=== PATIENT | female | born 1960 | race Two or more races ===

== ENCOUNTER 2022-09-30 03:58 | Inpatient (IN) | payer BC ==
[~2022-09-30] VITALS: Ht 154.9 cm; Wt 79.6 kg
[2022-09-30] VITALS (11 sets, daily range): BP systolic 105–130; BP diastolic 55–63; PULSE 68–125; RESP 18–24; TEMP 98.1–99.2; O2SAT 91–99
[2022-09-30] MEDS ORDERED: FERR325T20 PO (04:08)
[2022-09-30] MEDS ORDERED: FURO40TA4 PO (04:08)
[2022-09-30] MEDS ORDERED: MID10T PO (04:08)
[2022-09-30] MEDS ORDERED: LACT10SO3 PO (04:08)
[2022-09-30] MEDS ORDERED: FOLI-119 PO (04:08)
[2022-09-30] MEDS ORDERED: OMEP20TA PO (04:09)
[2022-09-30] MEDS ORDERED: ACETAMINOPHEN 325 MG TAB PO PRN (05:30)
[2022-09-30] MEDS ORDERED: MORPHINE SULFATE INJ 2 MG/ml SYRG IV PRN (05:30)
[2022-09-30] MEDS ORDERED: DOCUSATE SOD 100 MG CAP PO PRN (05:30)
[2022-09-30] MEDS ORDERED: ONDANSETRON HCL 4 MG/2 ML VIAL IV PRN (05:30)
[2022-09-30] MEDS ORDERED: ALBUTEROL SULF 2.5 MG/0.5ML(0.5%) NEB SOLN NEB PRN (05:30)
[2022-09-30] MEDS ORDERED: HYDROcodone-ACET 5/325MG TAB PO PRN (05:30)
[2022-09-30] MEDS ORDERED: NITROGLYCERIN 0.4 MG SL TAB SL PRN (05:30)
[2022-09-30] MEDS: LACTULOSE 20Gm/30ML SOLN PO SCH ×3 (06:00→19:03)
[2022-09-30] MEDS ORDERED: CEFEPIME 1GM/ 50ML 50 ML IV ONE (06:00)
[2022-09-30] MEDS: MIDODRINE HCL 10 MG TAB PO SCH ×3 (06:09→22:07)
[2022-09-30] MEDS: SOD CHL 0.9%/ KCL 20MEQ 1,000 ML IV SCH (06:19)
[2022-09-30 07:42] LABS: Basophils # (auto) 0 10 ^3/uL (0-0.2); Basophils % (auto) 0.4 % (0.0-2.0); Eosinophils # (auto) 0 10 ^3/uL (0-0.8); Eosinophils % (auto) 0.1 % (0.0-7.0); Hematocrit 36.9 % (36.0-46.0); Hemoglobin 11.6 g/dL (12.2-16.2); Lymphocytes # (auto) 0.9 10 ^3/uL (0.4-5.4); Lymphocytes % (auto) 10.3 % (10.0-50.0); Mean Corpuscular Hemoglobin 29.2 pg (28.0-32.0); Mean Corpuscular Hgb Conc. 31.5 g/dL (32.0-36.0); Mean Corpuscular Volume 92.5 fL (80.0-100.0); Monocytes # (auto) 1.3 10 ^3/uL (0-1.3); Monocytes % (auto) 15.5 % (0.0-12.0); Neutrophils # (auto) 6.1 10 ^3/uL (1.6-8.6); Neutrophils % (auto) 73.7 % (37.0-80.0); Nucleated Red Blood Cells % 0.1 %; Red Blood Cells 3.99 10^6/uL (4.0-5.20); Red Cell Distribution Width 17.8 % (11.8-14.3); White Blood Cell 8.3 10^3/uL (4.4-10.8)
[2022-09-30 07:49] LABS: Lactic Acid w/Reflex 5.2 mmol/L (0.4-2.0)
[2022-09-30 08:47] LABS: Potassium 3.1 mmol/L (3.5-5.1)
[2022-09-30 09:06] LABS: Albumin 1.7 g/dL (3.4-5.0); BUN/Creatinine Ratio 10.7 (10.0-20.0); Bilirubin, Total 3.8 mg/dL (0.2-1.0); Calcium 8.3 mg/dL (8.7-10.4); Total Protein 5.5 g/dL (6.4-8.2)
[2022-09-30] MEDS: PANTOPRAZOLE 40 MG TAB PO SCH ×2 (09:21→22:05)
[2022-09-30] MEDS: FOLIC ACID 1 MG TAB PO SCH (09:21)
[2022-09-30] MEDS: FERROUS SULFATE 325mg EC TAB PO SCH ×2 (09:21→19:03)
[2022-09-30] MEDS: POTASSIUM CHL 20 Meq TABLET PO SCH ×2 (11:25→15:07)
[2022-09-30] MEDS: ALBUTEROL SULF 2.5 MG/0.5ML(0.5%) NEB SOLN NEB SCH ×2 (12:01→20:16)
[2022-09-30 13:37] LABS: INR 1.98 (0.9-1.15); Prothrombin Time 19.9 sec (9.3-11.8)
[2022-09-30] MEDS ORDERED: CEFEPIME 1GM/ 50ML 50 ML IV SCH (18:00)
[2022-09-30] MEDS: levoFLOXacin 500MG 100 ML IV SCH (19:03)
[2022-10-01] VITALS (10 sets, daily range): BP systolic 105–114; BP diastolic 39–56; PULSE 100–112; RESP 16–23; TEMP 98–99.1; O2SAT 90–97
[2022-10-01] MEDS: LACTULOSE 20Gm/30ML SOLN PO SCH ×3 (05:22→12:00)
[2022-10-01] MEDS: MIDODRINE HCL 10 MG TAB PO SCH ×2 (05:22→17:22)
[2022-10-01 05:57] LABS: Hematocrit 32.8 % (36.0-46.0); Hemoglobin 10.6 g/dL (12.2-16.2); Mean Corpuscular Hemoglobin 29.5 pg (28.0-32.0); Mean Corpuscular Hgb Conc. 32.4 g/dL (32.0-36.0); Mean Corpuscular Volume 91.1 fL (80.0-100.0); Red Cell Distribution Width 17.5 % (11.8-14.3); White Blood Cell 7.9 10^3/uL (4.4-10.8)
[2022-10-01 06:15] LABS: Band Neutrophils % (manual) 0; Basophils % (manual) 0 (0.0-2.0); Blast Cells 0; Eosinophils % (manual) 0 (0-7); Metamyelocytes % 0; Myelocytes % 0; Promyelocytes % 0; Reactive Lymphocytes 0
[2022-10-01 06:25] LABS: Anion Gap 8.1 (5-15); Carbon Dioxide 20.9 mmol/L (20-30); Chloride 113 mmol/L (98-107); Potassium 3.4 mmol/L (3.5-5.1); Sodium 142 mmol/L (136-145)
[2022-10-01 06:26] LABS: Calcium 8.2 mg/dL (8.7-10.4)
[2022-10-01 06:31] LABS: BUN/Creatinine Ratio 10.8 (10.0-20.0); Blood Urea Nitrogen 7 mg/dL (9-23); Glucose 90 mg/dL (74-106)
[2022-10-01] MEDS: ALBUTEROL SULF 2.5 MG/0.5ML(0.5%) NEB SOLN NEB SCH ×2 (07:00→12:39)
[2022-10-01] MEDS: SOD CHL 0.9%/ KCL 20MEQ 1,000 ML IV SCH (07:12)
[2022-10-01] MEDS ORDERED: POTASSIUM CHL 20 Meq TABLET PO ONE (09:00)
[2022-10-01] MEDS: PANTOPRAZOLE 40 MG TAB PO SCH (09:11)
[2022-10-01] MEDS: FERROUS SULFATE 325mg EC TAB PO SCH (09:12)
[2022-10-01] MEDS: FOLIC ACID 1 MG TAB PO SCH (09:12)
[2022-10-01] MEDS: levoFLOXacin 500MG 100 ML IV SCH (09:12)
[2022-10-01] MEDS ORDERED: LEVO500T91 PO (09:26)
[2022-10-01] MEDS ORDERED: ALBUAER3 IN (09:26)
[2022-10-01] MEDS ORDERED: PHYTONADIONE(VitK) ORAL Susp 5mg/5ml(1mg/ml) PO ONE ×2 (09:30→11:30)
[2022-10-01 12:53] LABS: Lymphocytes % (manual) 16 (10.0-50.0); Monocytes % (manual) 11 (0-12); Platelet Estimate Decreased
== END 2022-10-01 18:37 | disposition home health service (06) | DRG 871 ==
LOC: TELE-EAST 03:58
PROVIDERS: ADMIT Nurse Practitioner; ATTEND Internal Medicine
DX: A41.9 Sepsis, unspecified organism (principal); J18.9 Pneumonia, unspecified organism; R18.8 Other ascites; J96.10 Chronic respiratory failure, unspecified whether with hypoxia or hypercapnia; D68.4 Acquired coagulation factor deficiency; K74.60 Unspecified cirrhosis of liver; K76.82 Hepatic encephalopathy; E78.5 Hyperlipidemia, unspecified; D50.9 Iron deficiency anemia, unspecified; K21.9 Gastro-esophageal reflux disease without esophagitis; Z99.81 Dependence on supplemental oxygen
CPT/HCPCS: 36415; 76705; 80048; 80053; 82140; 83605; 85007; 85025; 85027; 85610; 94640; G0378; J1956

== ENCOUNTER 2022-10-09 20:59 | Inpatient (IN) | payer BC ==
[~2022-10-09] VITALS: Ht 154.9 cm; Wt 80.1 kg
[~2022-10-09 20:59] MED LIST: ALBUAER3 IN; FERR325T20 PO; FOLI-119 PO; LACT10SO3 PO; LEVO500T91 PO; MID10T PO; OMEP20TA PO
[2022-10-09 22:00] VITALS: PULSE 99; RESP 16; O2SAT 96
[2022-10-09 22:19] LABS: Basophils # (auto) 0.1 10 ^3/uL (0-0.2); Basophils % (auto) 0.4 % (0.0-2.0); Eosinophils # (auto) 0 10 ^3/uL (0-0.8); Eosinophils % (auto) 0.2 % (0.0-7.0); Hematocrit 32.7 % (36.0-46.0); Hemoglobin 10.8 g/dL (12.2-16.2); Lymphocytes # (auto) 1.2 10 ^3/uL (0.4-5.4); Lymphocytes % (auto) 7.4 % (10.0-50.0); Mean Corpuscular Hemoglobin 29.3 pg (28.0-32.0); Mean Corpuscular Hgb Conc. 32.9 g/dL (32.0-36.0); Mean Corpuscular Volume 88.9 fL (80.0-100.0); Monocytes % (auto) 12.8 % (0.0-12.0); Neutrophils # (auto) 12.5 10 ^3/uL (1.6-8.6); Neutrophils % (auto) 79.2 % (37.0-80.0); Nucleated Red Blood Cells % 0.1 %; Red Blood Cells 3.67 10^6/uL (4.0-5.20); Red Cell Distribution Width 19.9 % (11.8-14.3); White Blood Cell 15.8 10^3/uL (4.4-10.8)
[2022-10-09 22:36] LABS: Alanine Aminotransferase 12 U/L (7-40); Albumin 2.1 g/dL (3.2-4.8); Alkaline Phosphatase 91 U/L (46-116); Anion Gap 7.4 (5-15); Aspartate Aminotransferase 52 U/L (13-40); BUN/Creatinine Ratio 12.1 (10.0-20.0); Blood Urea Nitrogen 12 mg/dL (9-23); Calcium 8.5 mg/dL (8.7-10.4); Carbon Dioxide 21.6 mmol/L (20-30); Chloride 105 mmol/L (98-107); Glucose 149 mg/dL (74-106); Sodium 134 mmol/L (136-145)
[2022-10-09 22:37] LABS: Bilirubin, Total 8.9 mg/dL (0.2-1.0); Total Protein 5.9 g/dL (5.7-8.2)
[2022-10-09 22:52] LABS: Potassium 2.7 mmol/L (3.5-5.1)
[2022-10-09] MEDS ORDERED: IOHEXOL 350 MG/ML 100ML IJ ONE (23:42)
[2022-10-09] MEDS ORDERED: VANCOMYCIN 1GM/250ML 250 ML IV ONE (23:45)
[2022-10-09] MEDS ORDERED: PIPERACILLIN-TAZOB 3.375GM 100 ML IV ONE (23:45)
[2022-10-09] MEDS ORDERED: LACTATED RINGER'S 2,400 ML IV ONE (23:45)
[2022-10-10] VITALS (8 sets, daily range): BP systolic 84–103; BP diastolic 30–44; PULSE 86–102; RESP 18–30; TEMP 98.2–98.4; O2SAT 95–99
[2022-10-10 01:38] LABS: Lactic Acid w/Reflex 3.1 mmol/L (0.4-2.0)
[2022-10-10] MEDS ORDERED: SODIUM CHLORIDE 0.9% 2,400 ML IV ONE (02:45)
[2022-10-10 04:44] LABS: Urine Bacteria FEW /hpf (None Seen); Urine Blood Negative /uL (Negative); Urine Clarity HAZY (Clear); Urine Color Yellow (Yellow); Urine Protein, UAD TRACE (Negative); Urine Specific Gravity 1.023 (1.001-1.035); Urine WBC 9 /hpf (0 - 5)
[2022-10-10] MEDS ORDERED: POTASSIUM CHL 20MEQ/100ML 100 ML IV SCH (05:45)
[2022-10-10] MEDS ORDERED: VANCOMYCIN PER PHARMACY 0 MG IV SCH (05:45)
[2022-10-10] MEDS ORDERED: IBUPROFEN 600 MG TAB PO PRN (05:45)
[2022-10-10] MEDS ORDERED: NITROGLYCERIN 0.4 MG SL TAB SL PRN (05:45)
[2022-10-10] MEDS ORDERED: ONDANSETRON HCL 4 MG/2 ML VIAL IV PRN (05:45)
[2022-10-10] MEDS ORDERED: MORPHINE SULFATE INJ 2 MG/ml SYRG IV PRN ×2 (05:45)
[2022-10-10] MEDS: POTASSIUM CHL 20MEQ/100ML 100 ML IV SCH ×2 (05:58→08:02)
[2022-10-10] MEDS: SODIUM CHLORIDE 0.9% 1,000 ML IV SCH (05:58)
[2022-10-10 07:10] LABS: Alanine Aminotransferase 10 U/L (7-40); Albumin 1.9 g/dL (3.2-4.8); Alkaline Phosphatase 84 U/L (46-116); Anion Gap 7.6 (5-15); Aspartate Aminotransferase 47 U/L (13-40); BUN/Creatinine Ratio 12.7 (10.0-20.0); Blood Urea Nitrogen 10 mg/dL (9-23); Calcium 8.1 mg/dL (8.5-10.1); Carbon Dioxide 22.4 mmol/L (20-30); Chloride 106 mmol/L (98-107); Glucose 129 mg/dL (74-106); Sodium 136 mmol/L (136-145); Total Protein 5.7 g/dL (5.7-8.2)
[2022-10-10 07:26] LABS: Potassium 2.7 mmol/L (3.5-5.1)
[2022-10-10 07:48] LABS: Basophils # (auto) 0.1 10 ^3/uL (0-0.2); Basophils % (auto) 0.7 % (0.0-2.0); Eosinophils # (auto) 0.1 10 ^3/uL (0-0.8); Eosinophils % (auto) 0.4 % (0.0-7.0); Hematocrit 32.6 % (36.0-46.0); Hemoglobin 10.4 g/dL (12.2-16.2); Lymphocytes # (auto) 1.1 10 ^3/uL (0.4-5.4); Lymphocytes % (auto) 7.1 % (10.0-50.0); Mean Corpuscular Hemoglobin 29.7 pg (28.0-32.0); Mean Corpuscular Hgb Conc. 31.7 g/dL (32.0-36.0); Mean Corpuscular Volume 93.6 fL (80.0-100.0); Monocytes # (auto) 2.3 10 ^3/uL (0-1.3); Monocytes % (auto) 14.3 % (0.0-12.0); Neutrophils # (auto) 12.2 10 ^3/uL (1.6-8.6); Neutrophils % (auto) 77.5 % (37.0-80.0); Nucleated Red Blood Cells % 0.1 %; Red Blood Cells 3.49 10^6/uL (4.0-5.20); White Blood Cell 15.8 10^3/uL (4.4-10.8)
[2022-10-10 07:52] LABS: Red Cell Distribution Width 20.6 % (11.8-14.3)
[2022-10-10] MEDS ORDERED: PIPERACILLIN-TAZOB 3.375GM 100 ML IV SCH (10:00)
[2022-10-10] MEDS: LACTULOSE 20Gm/30ML SOLN PO SCH ×2 (10:05→22:29)
[2022-10-10 10:44] LABS: INR 1.71 (0.9-1.15); Prothrombin Time 17.3 sec (9.3-11.8)
[2022-10-10 10:50] LABS: Anisocytosis Slight; Platelet Estimate Decreased
[2022-10-10 13:24] LABS: Chloride 108 mmol/L (98-107); Potassium 3.5 mmol/L (3.5-5.1); Sodium 136 mmol/L (136-145)
[2022-10-10 13:25] LABS: Anion Gap 7.8 (5-15); Calcium 8.2 mg/dL (8.5-10.1); Carbon Dioxide 20.2 mmol/L (20-30)
[2022-10-10 13:30] LABS: BUN/Creatinine Ratio 12.3 (10.0-20.0); Blood Urea Nitrogen 9 mg/dL (9-23); Glucose 112 mg/dL (74-106)
[2022-10-10 13:31] LABS: Magnesium 1.6 mg/dL (1.6-2.6)
[2022-10-10] MEDS: VANCOMYCIN 750mg/250ml 250 ML IV SCH (17:26)
[2022-10-10] MEDS: PIPERACILLIN-TAZOB 3.375GM 100 ML IV SCH (18:32)
[2022-10-10 22:58] LABS: Body Fluid Red Blood Cells 2393 CUMM (0-2000); Body Fluid White Blood Cells 1020 CUMM (0-200)
[2022-10-10 22:59] LABS: Body Fluid Polymorphonuclear 90 % (0-25)
[2022-10-11] VITALS (7 sets, daily range): BP systolic 94–131; BP diastolic 34–65; PULSE 75–105; RESP 16–24; TEMP 97.6–98.9; O2SAT 90–96
[2022-10-11] MEDS: SODIUM CHLORIDE 0.9% 1,000 ML IV SCH (01:02)
[2022-10-11] MEDS: PIPERACILLIN-TAZOB 3.375GM 100 ML IV SCH ×3 (01:47→18:05)
[2022-10-11] MEDS: HYDROcodone-ACET 5/325MG TAB PO PRN ×2 (01:49→22:05)
[2022-10-11] MEDS: VANCOMYCIN 750mg/250ml 250 ML IV SCH ×2 (04:57→16:46)
[2022-10-11 07:38] LABS: Basophils # (auto) 0.1 10 ^3/uL (0-0.2); Basophils % (auto) 0.4 % (0.0-2.0); Eosinophils # (auto) 0 10 ^3/uL (0-0.8); Eosinophils % (auto) 0.2 % (0.0-7.0); Hematocrit 31.1 % (36.0-46.0); Hemoglobin 10.1 g/dL (12.2-16.2); Lymphocytes # (auto) 1.3 10 ^3/uL (0.4-5.4); Lymphocytes % (auto) 8.3 % (10.0-50.0); Mean Corpuscular Hemoglobin 29.7 pg (28.0-32.0); Mean Corpuscular Hgb Conc. 32.6 g/dL (32.0-36.0); Mean Corpuscular Volume 90.8 fL (80.0-100.0); Monocytes # (auto) 2.5 10 ^3/uL (0-1.3); Monocytes % (auto) 15.8 % (0.0-12.0); Neutrophils # (auto) 11.9 10 ^3/uL (1.6-8.6); Neutrophils % (auto) 75.3 % (37.0-80.0); Nucleated Red Blood Cells % 0.1 %; Red Blood Cells 3.42 10^6/uL (4.0-5.20); White Blood Cell 15.8 10^3/uL (4.4-10.8)
[2022-10-11 07:54] LABS: Red Cell Distribution Width 20.4 % (11.8-14.3)
[2022-10-11 08:43] LABS: Alanine Aminotransferase 10 U/L (7-40); Albumin 1.8 g/dL (3.2-4.8); Alkaline Phosphatase 88 U/L (46-116); Anion Gap 7.4 (5-15); Aspartate Aminotransferase 51 U/L (13-40); BUN/Creatinine Ratio 13.1 (10.0-20.0); Bilirubin, Total 7.4 mg/dL (0.2-1.0); Blood Urea Nitrogen 8 mg/dL (9-23); Carbon Dioxide 21.6 mmol/L (20-30); Chloride 109 mmol/L (98-107); Glucose 114 mg/dL (74-106); Sodium 138 mmol/L (136-145); Total Protein 5.4 g/dL (5.7-8.2)
[2022-10-11] MEDS: LACTULOSE 20Gm/30ML SOLN PO SCH ×2 (09:09→22:00)
[2022-10-11 09:20] LABS: Potassium 2.8 mmol/L (3.5-5.1)
[2022-10-11] MEDS ORDERED: POTASSIUM CHL 20 Meq TABLET PO ONE ×2 (10:00→14:00)
[2022-10-11] MEDS ORDERED: FUROSEMIDE 20 MG/2 ML VIAL IV SCH (10:45)
[2022-10-11] MEDS ORDERED: PHYTONADIONE(VitK) ORAL Susp 10mg/10ml(1mg/ml) PO ONE (10:45)
[2022-10-11] MEDS: POTASSIUM CHL 20MEQ/100ML 100 ML IV SCH ×2 (11:00→14:33)
[2022-10-11] MEDS: SPIRONOLACTONE 25 MG TAB PO SCH (11:02)
[2022-10-11] MEDS: MIDODRINE HCL 10 MG TAB PO SCH ×2 (12:00→17:06)
[2022-10-11 16:05] LABS: Chloride 109 mmol/L (98-107); Sodium 137 mmol/L (136-145)
[2022-10-11 16:06] LABS: Anion Gap 7.7 (5-15); Carbon Dioxide 20.3 mmol/L (20-30)
[2022-10-11 16:11] LABS: Glucose 133 mg/dL (74-106)
[2022-10-11 16:20] LABS: BUN/Creatinine Ratio 14.1 (10.0-20.0); Blood Urea Nitrogen 9 mg/dL (9-23)
[2022-10-11] MEDS: MAGNESIUM SULFATE 1GM/100ML 100 ML IV SCH (23:05)
[2022-10-12] VITALS (8 sets, daily range): BP systolic 100–114; BP diastolic 44–59; PULSE 91–103; RESP 18–22; TEMP 97.7–98.9; O2SAT 89–100
[2022-10-12] MEDS ORDERED: MAGNESIUM SULFATE 1GM/100ML 100 ML IV ONE (00:10)
[2022-10-12] MEDS: MAGNESIUM SULFATE 1GM/100ML 100 ML IV SCH (00:14)
[2022-10-12] MEDS: PIPERACILLIN-TAZOB 3.375GM 100 ML IV SCH ×3 (01:31→19:26)
[2022-10-12] MEDS: VANCOMYCIN 750mg/250ml 250 ML IV SCH ×2 (03:42→17:02)
[2022-10-12] MEDS: MIDODRINE HCL 10 MG TAB PO SCH ×3 (05:55→18:01)
[2022-10-12 08:49] LABS: Basophils # (auto) 0.1 10 ^3/uL (0-0.2); Basophils % (auto) 0.5 % (0.0-2.0); Eosinophils # (auto) 0.1 10 ^3/uL (0-0.8); Eosinophils % (auto) 0.3 % (0.0-7.0); Hematocrit 33.6 % (36.0-46.0); Hemoglobin 10.9 g/dL (12.2-16.2); Lymphocytes # (auto) 1.2 10 ^3/uL (0.4-5.4); Lymphocytes % (auto) 6.1 % (10.0-50.0); Mean Corpuscular Hemoglobin 29.5 pg (28.0-32.0); Mean Corpuscular Hgb Conc. 32.5 g/dL (32.0-36.0); Mean Corpuscular Volume 90.9 fL (80.0-100.0); Monocytes # (auto) 2.3 10 ^3/uL (0-1.3); Monocytes % (auto) 11.8 % (0.0-12.0); Neutrophils # (auto) 15.8 10 ^3/uL (1.6-8.6); Neutrophils % (auto) 81.3 % (37.0-80.0); Nucleated Red Blood Cells % 0.2 %; Red Cell Distribution Width 19.8 % (11.8-14.3); White Blood Cell 19.5 10^3/uL (4.4-10.8)
[2022-10-12 08:53] LABS: Chloride 107 mmol/L (98-107); Potassium 3.5 mmol/L (3.5-5.1); Sodium 135 mmol/L (136-145)
[2022-10-12 08:54] LABS: Anion Gap 5.8 (5-15); Carbon Dioxide 22.2 mmol/L (20-30)
[2022-10-12 08:55] LABS: Calcium 8.3 mg/dL (8.5-10.1)
[2022-10-12 08:58] LABS: INR 1.86 (0.9-1.15); Partial Thromboplastin Time 42.1 SEC (24.5-34.5); Prothrombin Time 18.8 sec (9.3-11.8)
[2022-10-12 09:00] LABS: BUN/Creatinine Ratio 12.1 (10.0-20.0); Blood Urea Nitrogen 7 mg/dL (9-23); Glucose 111 mg/dL (74-106)
[2022-10-12] MEDS: FUROSEMIDE 20 MG TAB PO SCH (10:00)
[2022-10-12] MEDS: LACTULOSE 20Gm/30ML SOLN PO SCH ×2 (10:00→21:16)
[2022-10-12] MEDS: PHYTONADIONE(VitK) ORAL Susp 5mg/5ml(1mg/ml) PO SCH (10:00)
[2022-10-12] MEDS: SPIRONOLACTONE 25 MG TAB PO SCH (11:09)
[2022-10-12] MEDS: PANTOPRAZOLE 40 MG TAB PO SCH (11:09)
[2022-10-12] MEDS: POTASSIUM CHL 10 Meq TABLET PO SCH (11:09)
[2022-10-12] MEDS: HYDROcodone-ACET 5/325MG TAB PO PRN ×2 (12:38→20:55)
[2022-10-13] VITALS (7 sets, daily range): BP systolic 93–114; BP diastolic 37–54; PULSE 87–101; RESP 18–22; TEMP 97.6–98.4; O2SAT 91–96
[2022-10-13] MEDS: PIPERACILLIN-TAZOB 3.375GM 100 ML IV SCH ×2 (01:43→10:00)
[2022-10-13] MEDS ORDERED: VANCOMYCIN 750mg/250ml 250 ML IV SCH (06:00)
[2022-10-13] MEDS: MIDODRINE HCL 10 MG TAB PO SCH ×3 (06:15→18:37)
[2022-10-13 07:55] LABS: Basophils # (auto) 0.1 10 ^3/uL (0-0.2); Basophils % (auto) 0.6 % (0.0-2.0); Eosinophils # (auto) 0.2 10 ^3/uL (0-0.8); Eosinophils % (auto) 0.8 % (0.0-7.0); Hematocrit 34.6 % (36.0-46.0); Hemoglobin 11.4 g/dL (12.2-16.2); Lymphocytes # (auto) 1.7 10 ^3/uL (0.4-5.4); Lymphocytes % (auto) 8.4 % (10.0-50.0); Mean Corpuscular Hemoglobin 30.2 pg (28.0-32.0); Mean Corpuscular Volume 91.6 fL (80.0-100.0); Monocytes # (auto) 2.7 10 ^3/uL (0-1.3); Monocytes % (auto) 13.2 % (0.0-12.0); Neutrophils # (auto) 15.7 10 ^3/uL (1.6-8.6); Nucleated Red Blood Cells % 0.2 %; Red Blood Cells 3.78 10^6/uL (4.0-5.20); White Blood Cell 20.4 10^3/uL (4.4-10.8)
[2022-10-13 07:58] LABS: Red Cell Distribution Width 20.6 % (11.8-14.3)
[2022-10-13] MEDS: PHYTONADIONE(VitK) ORAL Susp 5mg/5ml(1mg/ml) PO SCH (10:00)
[2022-10-13] MEDS: POTASSIUM CHL 10 Meq TABLET PO SCH (10:55)
[2022-10-13] MEDS: LACTULOSE 20Gm/30ML SOLN PO SCH ×2 (10:55→22:24)
[2022-10-13] MEDS: SPIRONOLACTONE 25 MG TAB PO SCH (10:55)
[2022-10-13] MEDS: FUROSEMIDE 20 MG TAB PO SCH (10:56)
[2022-10-13] MEDS: PANTOPRAZOLE 40 MG TAB PO SCH (10:56)
[2022-10-13] MEDS: HYDROcodone-ACET 5/325MG TAB PO PRN (11:12)
[2022-10-13] MEDS ORDERED: SPIR25TA PO (12:00)
[2022-10-13] MEDS ORDERED: POTA-211 PO (12:00)
[2022-10-13] MEDS ORDERED: AUG875T PO (12:00)
[2022-10-13] MEDS ORDERED: FUR20T PO ×3 (12:00→15:00)
[2022-10-13 13:05] LABS: INR 1.78 (0.9-1.15); Partial Thromboplastin Time 45.8 SEC (24.5-34.5)
[2022-10-13] MEDS: AMOXICILLIN/CLAVUL 875 MG TAB PO SCH ×2 (13:35→22:24)
[2022-10-13] MEDS ORDERED: HYDR-4902 PO (14:48)
[2022-10-13 18:49] LABS: Chloride 106 mmol/L (98-107); Potassium 3.6 mmol/L (3.5-5.1); Sodium 135 mmol/L (136-145)
[2022-10-13 18:50] LABS: Anion Gap 5.8 (5-15); Calcium 8.4 mg/dL (8.5-10.1); Carbon Dioxide 23.2 mmol/L (20-30)
[2022-10-13 18:55] LABS: BUN/Creatinine Ratio 12.9 (10.0-20.0); Blood Urea Nitrogen 8 mg/dL (9-23); Glucose 104 mg/dL (74-106)
[2022-10-14 05:00] VITALS: BP 110/51; PULSE 87; RESP 18; TEMP 98.3; O2SAT 96
[2022-10-14] MEDS: MIDODRINE HCL 10 MG TAB PO SCH (06:09)
[2022-10-14 08:00] VITALS: BP 138/45; PULSE 100; PULSE 103; RESP 18; TEMP 98.3
[2022-10-14 08:47] VITALS: BP 138/45; PULSE 103; RESP 18; TEMP 98.3; O2SAT 94
[2022-10-14] MEDS: POTASSIUM CHL 10 Meq TABLET PO SCH (09:53)
[2022-10-14] MEDS: SPIRONOLACTONE 25 MG TAB PO SCH (09:53)
[2022-10-14] MEDS: PANTOPRAZOLE 40 MG TAB PO SCH (09:53)
[2022-10-14] MEDS: FUROSEMIDE 20 MG TAB PO SCH (09:54)
[2022-10-14] MEDS: LACTULOSE 20Gm/30ML SOLN PO SCH (09:56)
[2022-10-14] MEDS: AMOXICILLIN/CLAVUL 875 MG TAB PO SCH (10:00)
== END 2022-10-14 10:12 | disposition left against medical advice (07) | DRG 871 ==
LOC: ER 21:01 → TELE 10-10 05:44 → TELE-EAST 10-10 21:35
PROVIDERS: ADMIT Nurse Practitioner Family; ATTEND Internal Medicine
PROC: 0W9G3ZZ Drainage of Peritoneal Cavity, Percutaneous Approach (ICD-10-PCS; principal; 2022-10-10)
PROC: 05HB33Z Insertion of Infusion Device into Right Basilic Vein, Percutaneous Approach (ICD-10-PCS; 2022-10-12)
PROC: B54MZZA Ultrasonography of Right Upper Extremity Veins, Guidance (ICD-10-PCS; 2022-10-12)
DX: A41.9 Sepsis, unspecified organism (principal); J18.9 Pneumonia, unspecified organism; J96.21 Acute and chronic respiratory failure with hypoxia; D68.9 Coagulation defect, unspecified; E87.1 Hypo-osmolality and hyponatremia; C56.9 Malignant neoplasm of unspecified ovary; R18.8 Other ascites; J98.11 Atelectasis; K76.82 Hepatic encephalopathy; B18.2 Chronic viral hepatitis C; E83.42 Hypomagnesemia; E87.6 Hypokalemia; Z53.21 Procedure and treatment not carried out due to patient leaving prior to being seen by health care provider; E88.09 Other disorders of plasma-protein metabolism, not elsewhere classified; E86.0 Dehydration; K21.9 Gastro-esophageal reflux disease without esophagitis; K74.60 Unspecified cirrhosis of liver; Z80.0 Family history of malignant neoplasm of digestive organs; Z80.3 Family history of malignant neoplasm of breast
CPT/HCPCS: 36415; 71260; 74177; 76604; 76700; 76942; 80048; 80053; 80202; 81001; 82140; 83605; 83615; 83735; 83880; 84484; 85025; 85610; 85730; 86304; 87040; 87081; 87205; 89051; 93005; G0378; J2543; J3480